=== PATIENT | male | born 1950 | race African-American/Black ===

== ENCOUNTER 2018-12-08 21:19 | Emergency (ER) | payer SELFPAY ==
[~2018-12-08] VITALS: Ht 167.6 cm; Wt 74.8 kg
[2018-12-08 21:22] VITALS: BP 153/74
--- NOTE | 2018-12-08 21:27 | NUR ---
PT RECEIVED TO ER LOBBY VIA W/C IN STABLE CONDITION.
--- NOTE | 2018-12-08 22:48 | NUR ---
PT TAKEN TO BED 1
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
--- NOTE | 2018-12-08 23:13 | NUR ---
Dr. Rogers evaluating patient at bedside.
[2018-12-08 23:27] VITALS: BP 153/74
--- NOTE | 2018-12-08 23:28 | NUR ---
PATIENT D/C. AMBULATED TO WHEELCHAIR WITH STEADY GAIT AND THEN ESCORTED OUT IN WHEELCHAIR BY EMT. REFUESED TO TAKE AFTER CARE INSTRUCTIONS.
== END 2018-12-08 23:28 | disposition home or self-care (01) ==
LOC: MED 21:19
DX: Z00.00 Encounter for general adult medical examination without abnormal findings (principal); W19.XXXA Unspecified fall, initial encounter; Y93.89 Activity, other specified; Y92.89 Other specified places as the place of occurrence of the external cause; Y99.8 Other external cause status
CPT/HCPCS: 99281; 99283

== ENCOUNTER 2019-04-25 05:00 | Emergency (ER) | payer BC ==
[~2019-04-25] VITALS: Ht 172.7 cm; Wt 77.1 kg
[2019-04-25 05:00] VITALS: BP 117/54
[2019-04-25 05:05] VITALS: BP 117/54
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
== END 2019-04-25 05:05 ==
LOC: MED 05:00
DX: S60.812A Abrasion of left wrist, initial encounter (principal); S60.811A Abrasion of right wrist, initial encounter; M54.6 Pain in thoracic spine; X58.XXXA Exposure to other specified factors, initial encounter; Y93.89 Activity, other specified; Y92.89 Other specified places as the place of occurrence of the external cause; Y99.8 Other external cause status
CPT/HCPCS: 99283

== ENCOUNTER 2019-07-06 16:55 | Emergency (ER) | payer BC ==
[~2019-07-06] VITALS: Ht 172.7 cm; Wt 68.0 kg
[2019-07-06 17:01] VITALS: BP 100/75
--- NOTE | 2019-07-06 17:09 | NUR ---
PT PLACED IN BED 7 BY EMS.
--- NOTE | 2019-07-06 17:13 | NUR ---
Patient being evaluated by Dr. Zhou at bedside.
--- NOTE | 2019-07-06 17:32 | NUR ---
pt biba c/o etoh intoxication. pt is uncooperative and verbally aggressive. denies any medical problem. dnies drinking, denies drug use.
[2019-07-06] MEDS ORDERED: HALOPERIDOL IM 5 MG/ML VIAL IM ONE (17:45)
--- NOTE | 2019-07-06 17:45 | NUR ---
pt threw urinal on the floor, urine spilt, EVS called.
--- NOTE | 2019-07-06 17:56 | NUR ---
PT YELLING, CURSING AT STAFF, YELLING AT PATIENT'S USING VULGAR LANGUAGE. PT UNCOOPERATIVE AND NOT FOLLOWING COMMANDS. PT CONTINUES TO YELL RACES NAMES OUT. PT HAS BEEN RE-ORIENTED AND ASKED TO STOP YELLING AND PT WILL SAY "FUCK YOU!" AND PUT UP HIS MIDDLE FINGER.
--- NOTE | 2019-07-06 18:10 | NUR ---
pt urinated on the floor, EVS called
[2019-07-06 18:23] LABS: APPEARANCE,URINE CLEAR (CLEAR); BILIRUBIN,URINE NEGATIVE (NEGATIVE); BLOOD, URINE NEGATIVE (NEGATIVE); COLOR,URINE YELLOW (YELLOW); LEUKOCYTE ESTERASE ,URINE NEGATIVE (NEGATIVE); NITRITE, URINE NEGATIVE (NEGATIVE); UGLUCOSE NEGATIVE (NEGATIVE)
--- NOTE | 2019-07-06 18:38 | NUR ---
Omar rodriguez in ED - 07/06/19 at 1838 by [email or web address] pt asleep in bed at this time
--- NOTE | 2019-07-06 18:38 | NUR ---
pt asleep in bed at this time, arousable to verbal stimuli
[2019-07-06 19:04] LABS: BARBITURATE, URINE NEG. ng/ml (NEG <=200); BENZODIAZEPINE, URINE NEG. ng/mL (NEG <=200); CANNABINOID, URINE NEG. ng/mL (NEG <=50); COCAINE, URINE NEG. ng/mL (NEG <=300); OPIATE, URINE NEG. ng/mL (NEG <=2000); PHENCYCLIDINE SCREEN,URINE NEG. ng/mL (NEG <=25)
--- NOTE | 2019-07-06 19:20 | NUR ---
Pt report given to costa whyte. Transfer of care at this time.
--- NOTE | 2019-07-06 19:20 | NUR ---
BEDSIDE REPORT RECEIVED FROM LIZA THOMPSON. ASSUMED CARE AT THIS TIME. PT ASLEEP. VISIBLE CHEST RISE AND FALL NOTED. BEDRIALS X2 UP FOR PT SAFETY. WILL CONTINUE TO MONITOR.
[2019-07-06 19:33] LABS: ANION GAP 15.3 (8-16); CARBON DIOXIDE 21.9 mmol/L (21-32); CHLORIDE 112 mmol/L (98-107); CREATININE 0.7 mg/dL (0.7-1.3); GLUCOSE 91 mg/dL (74-106); POTASSIUM 4.2 mmol/L (3.5-5.1); SODIUM SERUM 145 mmol/L (136-145); UREA NITROGEN, BLOOD 9 mg/dL (7-18)
[2019-07-06 19:34] LABS: BASOPHILS # (AUTO) 0.1 K/uL (0.00-0.22); BASOPHILS % (AUTO) 1.2 % (0.0-2.0); EOSINOPHILS % (AUTO) 0.7 % (0.0-4.0); LYMPHOCYTES # (AUTO) 3.3 K/uL (2.0-11.5); LYMPHOCYTES % (AUTO) 70.9 % (20.5-51.1); MEAN CORPUSCULAR HEMOGLOBIN 25 pg (27-31); MEAN CORPUSCULAR HGB CONC 32 g/dL (33-37); MEAN CORPUSCULAR VOLUME 76.7 fL (80-94); MONOCYTES # (AUTO) 0.2 K/uL (0.8-1.0); NEUTROPHILS # (AUTO) 1.1 K/uL (1.8-7.7); NEUTROPHILS % (AUTO) 23.2 % (42.2-75.2); PLATELET COUNT (AUTO) 105 K/uL (140-450); RED BLOOD CELL COUNT(AUTO) 3.65 MIL/uL (4.20-6.10); RED CELL DISTRIBUTION WIDTH 17.9 % (11.6-13.7); WHITE BLOOD COUNT (AUTO) 4.7 K/uL (4.8-10.8)
[2019-07-06 19:44] LABS: ALBUMIN 3.2 g/dL (3.4-5.0); ASPARTATE AMINOTRANSFERASE 133 U/L (15-37); TOTAL BILIRUBIN 0.8 mg/dL (0.0-1.0)
[2019-07-06 20:59] VITALS: BP 93/48
--- NOTE | 2019-07-06 20:59 | NUR ---
PT ASLEEP. AROUSABLE TO NAME AND LIGHT TOUCH. VSS. WILL CONTINUE TO MONITOR.
--- NOTE | 2019-07-06 21:10 | NUR ---
PT AWAKE. PT STATED "IM IN PAIN. MY HERNIA HURTS." ERMD MADE AWARE.
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
--- NOTE | 2019-07-06 22:17 | NUR ---
Patient discharged with v/s stable. Written and verbal after care instructions given and explained. Pt did not express verbal understanding. Pt refused to take discharge paperwork or sign. Wheel Chair Assisted out by security. Pt able to ambulate but refused to.
== END 2019-07-06 22:17 | disposition home or self-care (01) ==
LOC: MED 16:55
DX: F10.129 Alcohol abuse with intoxication, unspecified (principal)
CPT/HCPCS: 36415; 80053; 80305; 81003; 85025; 96372; 99283; G0482; J1630

== ENCOUNTER 2020-10-17 10:54 | Emergency (ER) | payer OTHER, BC ==
[~2020-10-17] VITALS: Ht 172.7 cm; Wt 68.2 kg
--- NOTE | 2020-10-17 10:55 | NUR ---
Patient BIBA BLS, transferred to bed 3. RN evaluating the patient at bedside.
--- NOTE | 2020-10-17 11:03 | NUR ---
ERMD AT BEDSIDE EVALUATING PT.
[2020-10-17 11:04] VITALS: BP 137/82
--- NOTE | 2020-10-17 11:18 | NUR ---
70 Y/M BIBA FROM [facility]. PT C/O CP X 1 DAY, NON RADIATING. PT A&O X 4. RR EVEN AND UNLABORED. PT ALSO REPORTS 6/10 PAIN FROM RIGHT GROIN C LOOSE STOOLS. PT REPORTS CHRONIC HERNIA AND PAIN HAS BEEN CONSTANT. DENIES DYSURIA. PT ALSO REPORTS CHRONIC COUGH D/T EMPHYSIMA NKDA PMH:EMPHYSIMA, HERNIA, HTN
--- NOTE | 2020-10-17 11:52 | NUR ---
LAB AT BEDSIDE.
[2020-10-17] MEDS ORDERED: ALUMINUM HYD/MAG/SIMETHICONE 30 ML UDC PO ONE (11:55)
[2020-10-17 12:01] LABS: BASOPHILS # (AUTO) 0.1 K/uL (0.00-0.22); BASOPHILS % (AUTO) 1.3 % (0.0-2.0); EOSINOPHILS % (AUTO) 0.3 % (0.0-4.0); HEMATOCRIT 26.1 % (36-52); HEMOGLOBIN 8.2 g/dL (12.0-18.0); LYMPHOCYTES # (AUTO) 1.6 K/uL (2.0-11.5); LYMPHOCYTES % (AUTO) 37.9 % (20.5-51.1); MEAN CORPUSCULAR HEMOGLOBIN 24 pg (27-31); MEAN CORPUSCULAR HGB CONC 32 g/dL (33-37); MEAN CORPUSCULAR VOLUME 77.1 fL (80-94); MONOCYTES # (AUTO) 0.3 K/uL (0.8-1.0); MONOCYTES % (AUTO) 7.1 % (1.7-9.3); NEUTROPHILS # (AUTO) 2.3 K/uL (1.8-7.7); NEUTROPHILS % (AUTO) 53.4 % (42.2-75.2); PLATELET COUNT (AUTO) 95 K/uL (140-450); RED BLOOD CELL COUNT(AUTO) 3.39 MIL/uL (4.20-6.10); RED CELL DISTRIBUTION WIDTH 18.8 % (11.6-13.7); WHITE BLOOD COUNT (AUTO) 4.2 K/uL (4.8-10.8)
[2020-10-17 12:14] LABS: ALBUMIN 3.5 g/dL (3.4-5.0); ANION GAP 14.7 (8-16); ASPARTATE AMINOTRANSFERASE 87 U/L (15-37); CARBON DIOXIDE 23.2 mmol/L (21-32); CHLORIDE 105 mmol/L (98-107); CREATININE 0.8 mg/dL (0.6-1.3); GLUCOSE 89 mg/dL (74-106); LIPASE 131 U/L (73-393); POTASSIUM 3.9 mmol/L (3.5-5.1); SODIUM SERUM 139 mmol/L (136-145); TOTAL BILIRUBIN 2.3 mg/dL (0.0-1.0); UREA NITROGEN, BLOOD 12 mg/dL (7-18)
--- NOTE | 2020-10-17 12:27 | NUR ---
PT AMBULATED TO BATHROOM, STEADY GAIT.
[2020-10-17 12:49] VITALS: BP 138/81
--- NOTE | 2020-10-17 12:50 | NUR ---
Patient discharged with v/s stable. Written and verbal after care instructions given and explained. Patient alert, oriented and verbalized understanding of instructions. Ambulatory with steady gait. All questions addressed prior to discharge. ID band removed. Patient advised to follow up with PMD. Rx of MOTRIN given. Patient educated on indication of medication including possible reaction and side effects. Opportunity to ask questions provided and answered. PT GIVEN BUS PASS.
== END 2020-10-17 12:50 | disposition home or self-care (01) ==
LOC: MED 10:54
DX: K40.90 Unilateral inguinal hernia, without obstruction or gangrene, not specified as recurrent (principal); K70.30 Alcoholic cirrhosis of liver without ascites; G89.29 Other chronic pain
CPT/HCPCS: 36415; 80053; 83690; 84484; 85025; 93005; 99284

== ENCOUNTER 2021-02-07 08:45 | Emergency (ER) | payer OTHER, BC ==
[~2021-02-07] VITALS: Ht 170.2 cm; Wt 68.0 kg
--- NOTE | 2021-02-07 08:45 | NUR ---
PT BIBA TO BED 06.
[2021-02-07 08:48] VITALS: BP 157/87
--- NOTE | 2021-02-07 09:06 | NUR ---
ERMD AT BEDSIDE.
[2021-02-07 09:19] LABS: BASOPHILS # (AUTO) 0.1 K/uL (0.00-0.22); BASOPHILS % (AUTO) 1.5 % (0.0-2.0); EOSINOPHILS % (AUTO) 0.3 % (0.0-4.0); HEMATOCRIT 29.1 % (36-52); HEMOGLOBIN 9.4 g/dL (12.0-18.0); LYMPHOCYTES # (AUTO) 1.6 K/uL (2.0-11.5); MEAN CORPUSCULAR HEMOGLOBIN 25 pg (27-31); MEAN CORPUSCULAR HGB CONC 32 g/dL (33-37); MEAN CORPUSCULAR VOLUME 77.8 fL (80-94); MONOCYTES # (AUTO) 0.7 K/uL (0.8-1.0); NEUTROPHILS % (AUTO) 67.2 % (42.2-75.2); PLATELET COUNT (AUTO) 143 K/uL (140-450); RED BLOOD CELL COUNT(AUTO) 3.73 MIL/uL (4.20-6.10); RED CELL DISTRIBUTION WIDTH 18.2 % (11.6-13.7); WHITE BLOOD COUNT (AUTO) 7.4 K/uL (4.8-10.8)
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
[2021-02-07 09:32] LABS: ANION GAP 17.1 (8-16); CARBON DIOXIDE 23.2 mmol/L (21-32); CHLORIDE 100 mmol/L (98-107); CREATININE 1.4 mg/dL (0.6-1.3); GLUCOSE 144 mg/dL (74-106); POTASSIUM 4.3 mmol/L (3.5-5.1); SODIUM SERUM 136 mmol/L (136-145); UREA NITROGEN, BLOOD 23 mg/dL (7-18)
[2021-02-07 09:39] LABS: ALBUMIN 3.7 g/dL (3.4-5.0); ASPARTATE AMINOTRANSFERASE 65 U/L (15-37); TOTAL BILIRUBIN 2.7 mg/dL (0.0-1.0)
[2021-02-07 09:40] LABS: ACETAMINOPHEN < 0.5 ug/ml (10-30); SALICYLATE < 2.8 mg/dL (2.8-20.0)
--- NOTE | 2021-02-07 09:42 | NUR ---
TERA AND NOVEL SWABS COLLECTED AND SENT TO LAB
--- NOTE | 2021-02-07 10:00 | NUR ---
PT REQUESTING FOR SOMETHING TO EAT, ROBERTO CARLOS MADE AWARE. ORDERS RECEIVED. PT OFFERED SANDWICH AT THIS TIME.
--- NOTE | 2021-02-07 11:20 | NUR ---
PT STATES HE UNABLE TO PROVIDE URINE AT THIS TIME.
[2021-02-07 13:53] LABS: APPEARANCE,URINE CLEAR (CLEAR); BILIRUBIN,URINE 2+ (NEGATIVE); BLOOD, URINE NEGATIVE (NEGATIVE); COLOR,URINE DARK YELLOW (YELLOW); LEUKOCYTE ESTERASE ,URINE NEGATIVE (NEGATIVE); NITRITE, URINE POSITIVE (NEGATIVE); UGLUCOSE NEGATIVE (NEGATIVE)
--- NOTE | 2021-02-07 13:57 | NUR ---
PT SPEAKING WITH TELEPSYCH CONSULT.
--- NOTE | 2021-02-07 14:20 | NUR ---
PT ON TELEPSYCH CONSULT WITH DR LAUREN
[2021-02-07 15:08] LABS: BARBITURATE, URINE NEGATIVE ng/ml (NEG <=200); BENZODIAZEPINE, URINE NEGATIVE ng/mL (NEG <=200); CANNABINOID, URINE POSITIVE ng/mL (NEG <=50); COCAINE, URINE NEGATIVE ng/mL (NEG <=300)
[2021-02-07 15:09] LABS: OPIATE, URINE NEGATIVE ng/mL (NEG <=2000); PHENCYCLIDINE SCREEN,URINE NEGATIVE ng/mL (NEG <=25)
--- NOTE | 2021-02-07 15:17 | NUR ---
pt c/o of cramping ermd made aware.
[2021-02-07] MEDS: CYCLOBENZAPRINE 10 MG TAB PO ONE (15:21)
[2021-02-07 15:23] VITALS: BP 136/56
--- NOTE | 2021-02-07 15:24 | NUR ---
Patient discharged with v/s stable. Written and verbal after care instructions given and explained. Patient verbalized understanding. Patient refused to sign discharge paperwork. Ambulatory with steady gait. All questions addressed prior to discharge. Advised to follow up with PMD.
== END 2021-02-07 15:20 | disposition home or self-care (01) ==
LOC: MED 08:45
DX: F15.10 Other stimulant abuse, uncomplicated (principal); Z20.822 Contact with and (suspected) exposure to COVID-19; R44.3 Hallucinations, unspecified; F60.0 Paranoid personality disorder; F17.200 Nicotine dependence, unspecified, uncomplicated; Z98.890 Other specified postprocedural states
CPT/HCPCS: 36415; 80053; 80305; 81003; 85025; 87426; 99283; G0480; G0482; U0003

== ENCOUNTER 2021-05-26 07:38 | Emergency (ER) | payer OTHER, BC ==
[~2021-05-26] VITALS: Ht 172.7 cm; Wt 74.8 kg
[2021-05-26 07:42] VITALS: BP 149/89
--- NOTE | 2021-05-26 07:50 | NUR ---
PT TO WAIT IN LOBBY
[2021-05-26 10:19] VITALS: BP 159/93
--- NOTE | 2021-05-26 12:56 | NUR ---
PT TAKEN TO CHAIR AND GIVEN FOOD. EVEN AND UNLABORED RESPIRATIONS OBSERVED.
--- NOTE | 2021-05-26 13:13 | NUR ---
PT ABLE TO WALK WITHOUT ASSISTANCE, DR FLORES MADE AWARE.
--- NOTE | 2021-05-26 13:37 | NUR ---
Patient discharged with v/s stable. Written and verbal after care instructions given and explained. Patient verbalized understanding. Ambulatory with steady gait. All questions addressed prior to discharge. Advised to follow up with PMD. SUPPLIED WITH FOOD AND HOMELESS RESOURCES AND SHELTERS. GIVEN BUS PASS UPON D/C
--- NOTE | 2021-05-26 13:37 | NUR ---
NO NURSING INTERVENTION PROVIDED
== END 2021-05-26 13:37 | disposition home or self-care (01) ==
LOC: MED 07:38
DX: F15.10 Other stimulant abuse, uncomplicated (principal); F17.200 Nicotine dependence, unspecified, uncomplicated; Z98.890 Other specified postprocedural states
CPT/HCPCS: 99283

== ENCOUNTER 2021-06-27 09:34 | Emergency (ER) | payer OTHER, BC ==
[~2021-06-27] VITALS: Ht 170.2 cm; Wt 64.4 kg
--- NOTE | 2021-06-27 09:39 | NUR ---
Patient to bed [facility].
[2021-06-27 09:41] VITALS: BP 138/80
--- NOTE | 2021-06-27 09:54 | NUR ---
DR PRINCE AT BEDSIDE EVALUATING PT
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
--- NOTE | 2021-06-27 10:19 | NUR ---
RADIOLOGY AT BEDSIDE TO DO XRAY
--- NOTE | 2021-06-27 10:24 | NUR ---
EMT AT BEDSIDE FOR EKG
--- NOTE | 2021-06-27 10:27 | NUR ---
per ermd 12 lead was done on pt andcame back nsr at 79 hr.
--- NOTE | 2021-06-27 10:40 | NUR ---
LAB AT BEDSIDE DRAWING BLOOD.
--- NOTE | 2021-06-27 10:46 | NUR ---
PT NOTIFIED THAT A URINE SAMPLE IS NEEDED. PT STATES HE WILL PROVIDE ONE ONCE HE IS ABLE TO
[2021-06-27 10:51] LABS: BASOPHILS # (AUTO) 0.1 K/uL (0.00-0.22); EOSINOPHILS # (AUTO) 0.1 K/uL (0-0.4); EOSINOPHILS % (AUTO) 2.7 % (0.0-4.0); HEMATOCRIT 27.5 % (36-52); HEMOGLOBIN 8.9 g/dL (12.0-18.0); LYMPHOCYTES # (AUTO) 1.5 K/uL (2.0-11.5); LYMPHOCYTES % (AUTO) 27.4 % (20.5-51.1); MEAN CORPUSCULAR HEMOGLOBIN 24 pg (27-31); MEAN CORPUSCULAR HGB CONC 32 g/dL (33-37); MEAN CORPUSCULAR VOLUME 75.7 fL (80-94); MONOCYTES # (AUTO) 0.6 K/uL (0.8-1.0); MONOCYTES % (AUTO) 11.3 % (1.7-9.3); NEUTROPHILS # (AUTO) 3.2 K/uL (1.8-7.7); NEUTROPHILS % (AUTO) 57.6 % (42.2-75.2); PLATELET COUNT (AUTO) 113 K/uL (140-450); RED BLOOD CELL COUNT(AUTO) 3.64 MIL/uL (4.20-6.10); RED CELL DISTRIBUTION WIDTH 20.1 % (11.6-13.7); WHITE BLOOD COUNT (AUTO) 5.5 K/uL (4.8-10.8)
[2021-06-27 11:19] LABS: ALBUMIN 3.2 g/dL (3.4-5.0); ANION GAP 12.2 (8-16); ASPARTATE AMINOTRANSFERASE 62 U/L (15-37); CHLORIDE 102 mmol/L (98-107); CREATININE 0.8 mg/dL (0.6-1.3); GLUCOSE 129 mg/dL (74-106); LIPASE 92 U/L (73-393); POTASSIUM 4.2 mmol/L (3.5-5.1); SODIUM SERUM 135 mmol/L (136-145); TOTAL BILIRUBIN 1.9 mg/dL (0.0-1.0); UREA NITROGEN, BLOOD 12 mg/dL (7-18)
[2021-06-27 11:45] LABS: SALICYLATE < 2.8 mg/dL (2.8-20.0)
--- NOTE | 2021-06-27 11:58 | NUR ---
URINE COLECTED AND TAKEN TO LAB FOR PROCESSING
[2021-06-27 12:35] LABS: BARBITURATE, URINE NEGATIVE ng/ml (NEG <=200); BENZODIAZEPINE, URINE NEGATIVE ng/mL (NEG <=200); CANNABINOID, URINE NEGATIVE ng/mL (NEG <=50); COCAINE, URINE NEGATIVE ng/mL (NEG <=300); OPIATE, URINE POSITIVE ng/mL (NEG <=2000); PHENCYCLIDINE SCREEN,URINE NEGATIVE ng/mL (NEG <=25)
--- NOTE | 2021-06-27 12:45 | NUR ---
RAD AT BEDSIDE
[2021-06-27 13:50] VITALS: BP 124/75
--- NOTE | 2021-06-27 13:50 | NUR ---
Patient discharged with v/s stable. Written and verbal after care instructions given and explained. Patient verbalized understanding. Ambulatory with steady gait. All questions addressed prior to discharge. Advised to follow up with PMD.
--- NOTE | 2021-06-27 13:51 | NUR ---
Patient given written and verbal discharge instructions and verbalizes understanding. Given copies of tests performed during visit. Patient is awake, alert and oriented. Ambulatory with steady gait. Refuses offer of [facility]. Given list of available shelters in surrounding areas. PT GIVEN HOMELESS BACK AND BAG OF FOOD. PT SIGNED HOMELESS WAIVER.
== END 2021-06-27 13:51 | disposition home or self-care (01) ==
LOC: MED 09:34
DX: R11.2 Nausea with vomiting, unspecified (principal); M25.512 Pain in left shoulder; M25.561 Pain in right knee; F17.200 Nicotine dependence, unspecified, uncomplicated; Z98.890 Other specified postprocedural states
CPT/HCPCS: 36415; 71045; 73030; 73562; 80053; 80305; 83690; 84484; 85025; 93005; 99285; G0480; G0482; Q0092

== ENCOUNTER 2021-09-16 21:10 | Emergency (ER) | payer OTHER, BC, SELFPAY ==
[~2021-09-16] VITALS: Ht 170.2 cm; Wt 68.0 kg
[2021-09-16] MEDS: KETOROLAC 60 MG/2 ML VIAL IM ONE (01:41)
[2021-09-16] MEDS: cefTRIAXone 1,000 MG in LIDOCAINE MPF 1% 2.1 ML IM ONE (01:42)
[2021-09-16 21:33] VITALS: BP 143/78
--- NOTE | 2021-09-16 21:43 | NUR ---
PT OFFLOADED TPO LOBBY IN STABLE CONDITION.
[2021-09-17] MEDS ORDERED: KETOROLAC 60 MG/2 ML VIAL IM ONE (01:36)
[2021-09-17] MEDS ORDERED: BACITRACIN OINT 500 UNITS/GM PKT TP ONE (01:36)
[2021-09-17] MEDS ORDERED: LIDOCAINE MPF 1% 5 ML ONE (01:36)
[2021-09-17] MEDS ORDERED: cefTRIAXone 1,000 MG VIAL ONE (01:36)
[2021-09-17] MEDS: BACITRACIN OINT 500 UNITS/GM PKT TP ONE (01:40)
[2021-09-17] MEDS ORDERED: IBUP-2213 PO (01:53)
[2021-09-17] MEDS ORDERED: ACET-8386 PO (01:53)
[2021-09-17 02:08] VITALS: BP 138/79
--- NOTE | 2021-09-17 02:08 | NUR ---
Patient discharged with v/s stable. Written and verbal after care instructions given and explained. Patient alert, oriented and verbalized understanding of instructions. Ambulatory with steady gait. All questions addressed prior to discharge. ID band removed. Patient advised to follow up with PMD. Rx of NORCO AND MOTRIN given. Patient educated on indication of medication including possible reaction and side effects. Opportunity to ask questions provided and answered.
== END 2021-09-17 02:08 | disposition home or self-care (01) ==
LOC: MED 21:10
DX: L03.115 Cellulitis of right lower limb (principal); L03.116 Cellulitis of left lower limb; I11.0 Hypertensive heart disease with heart failure; I50.9 Heart failure, unspecified; F17.200 Nicotine dependence, unspecified, uncomplicated; F11.90 Opioid use, unspecified, uncomplicated; F15.90 Other stimulant use, unspecified, uncomplicated; Z98.890 Other specified postprocedural states
CPT/HCPCS: 96372; 99284; J0696; J1885; J2001

== ENCOUNTER 2021-12-04 17:13 | Emergency (ER) | payer OTHER, BC ==
[~2021-12-04] VITALS: Ht 172.7 cm; Wt 68.0 kg
[2021-12-04 17:13] VITALS: BP 145/88
[~2021-12-04 17:13] MED LIST: ACET-8386 PO; IBUP-2213 PO
--- NOTE | 2021-12-04 17:15 | NUR ---
PT TO BE TAKEN TO LOBBY VIA W/C PER DR. GARCIA.
--- NOTE | 2021-12-04 17:20 | NUR ---
71 y/o M BIBA c/o for fatigue x 3 days, chronic R hip pain, chronic low back pain. Patient A&Ox4, wheelchair assisted, states increased pain after waking up in morning worsening with ambulating. Patient states taking a few sips of beer today; denies trauma/fall/injury, chest pain, dizziness, headache. States SOB. Lung sounds CTA. Pt placed into a gown. Skin pink/warm/dry. Cap refill <2 seconds. Bed locked in lowest position, side rails x 1. PMH/Sx/Meds: alcoholism NKDA
--- NOTE | 2021-12-04 17:25 | NUR ---
PT TAKEN TO ER BED 6 VIA W/C.
--- NOTE | 2021-12-04 17:46 | NUR ---
DR. GARCIA AT PT BEDSIDE FOR FURTHER EVALUATION.
[2021-12-04] MEDS ORDERED: CYCLOBENZAPRINE 10 MG TAB PO ONE (18:00)
[2021-12-04] MEDS ORDERED: KETOROLAC 15 MG/ML VIAL IVP ONE (18:00)
--- NOTE | 2021-12-04 18:04 | NUR ---
REPAIRER AND CHECKER AT PT BEDSIDE.
[2021-12-04 18:17] LABS: APPEARANCE,URINE CLEAR (CLEAR); BILIRUBIN,URINE NEGATIVE (NEGATIVE); BLOOD, URINE NEGATIVE (NEGATIVE); LEUKOCYTE ESTERASE ,URINE NEGATIVE (NEGATIVE); NITRITE, URINE NEGATIVE (NEGATIVE); UGLUCOSE NEGATIVE (NEGATIVE)
--- NOTE | 2021-12-04 18:24 | NUR ---
Covid marcello and influenza swab collected, handed to CPT Meagan at ER bedside
[2021-12-04 18:33] LABS: BASOPHILS # (AUTO) 0.1 K/uL (0.00-0.22); BASOPHILS % (AUTO) 1.3 % (0.0-2.0); EOSINOPHILS # (AUTO) 0.1 K/uL (0-0.4); EOSINOPHILS % (AUTO) 1.8 % (0.0-4.0); HEMATOCRIT 32.8 % (36-52); HEMOGLOBIN 10.4 g/dL (12.0-18.0); LYMPHOCYTES # (AUTO) 0.9 K/uL (2.0-11.5); LYMPHOCYTES % (AUTO) 19.1 % (20.5-51.1); MEAN CORPUSCULAR HEMOGLOBIN 24 pg (27-31); MEAN CORPUSCULAR HGB CONC 32 g/dL (33-37); MEAN CORPUSCULAR VOLUME 74.1 fL (80-94); MONOCYTES # (AUTO) 0.2 K/uL (0.8-1.0); NEUTROPHILS # (AUTO) 3.4 K/uL (1.8-7.7); NEUTROPHILS % (AUTO) 73.8 % (42.2-75.2); PLATELET COUNT (AUTO) 128 K/uL (140-450); RED BLOOD CELL COUNT(AUTO) 4.43 MIL/uL (4.20-6.10); RED CELL DISTRIBUTION WIDTH 19.9 % (11.6-13.7); WHITE BLOOD COUNT (AUTO) 4.6 K/uL (4.8-10.8)
[2021-12-04 18:56] LABS: BARBITURATE, URINE NEGATIVE ng/ml (NEG <=200); BENZODIAZEPINE, URINE NEGATIVE ng/mL (NEG <=200); COCAINE, URINE NEGATIVE ng/mL (NEG <=300)
[2021-12-04 18:57] LABS: CANNABINOID, URINE POSITIVE ng/mL (NEG <=50); OPIATE, URINE NEGATIVE ng/mL (NEG <=2000); PHENCYCLIDINE SCREEN,URINE NEGATIVE ng/mL (NEG <=25)
--- NOTE | 2021-12-04 19:01 | NUR ---
Patient resting in semi-fowlers position with both eyes closed. quality assurance monitor chassis in place. VSS. Respirations even/unlabored. Bed locked in lowest position, side rails x 1.
--- NOTE | 2021-12-04 19:03 | NUR ---
Pt states + relief to pain; 7/10 at this time. All pt needs met.
[2021-12-04 19:08] LABS: SALICYLATE < 2.8 mg/dL (2.8-20.0)
[2021-12-04 19:09] LABS: ALBUMIN 3.5 g/dL (3.4-5.0); AMYLASE 62 U/L (25-115); ANION GAP 15.2 (8-16); ASPARTATE AMINOTRANSFERASE 72 U/L (15-37); CARBON DIOXIDE 23.3 mmol/L (21-32); CHLORIDE 104 mmol/L (98-107); CREATININE 0.8 mg/dL (0.6-1.3); GLUCOSE 91 mg/dL (74-106); LIPASE 125 U/L (73-393); POTASSIUM 4.5 mmol/L (3.5-5.1); SODIUM SERUM 138 mmol/L (136-145); UREA NITROGEN, BLOOD 31 mg/dL (7-18)
[2021-12-04 19:09] LABS: ACETAMINOPHEN < 0.5 ug/ml (10-30)
[2021-12-04 19:10] LABS: COLOR,URINE AMBER (YELLOW)
--- NOTE | 2021-12-04 19:12 | NUR ---
Report and transfer of care endorsed to THOMAS Hidalgo.
[2021-12-04 19:23] LABS: TOTAL BILIRUBIN 1.4 mg/dL (0.0-1.0)
--- NOTE | 2021-12-04 19:38 | NUR ---
pt provided emisis bag for coughing up mucus. pt hob elevated. pt resting in bed
[2021-12-04] MEDS ORDERED: IBUP-2213 PO (19:44)
[2021-12-04] MEDS ORDERED: METH-1681 PO (19:44)
--- NOTE | 2021-12-04 20:06 | NUR ---
DR GARCIA AT BEDSIDE EXPLAINING D/C ORDERS. PROVIDED HOMELESS RESOURCES TO PT. PT UNWILLING TO LEAVE DESPITE ALL LABS / IMAGING COING BACK WNL. PT NOT SIGNING DC PAPERWORK. REMOVED ALL IVS, ID BAND AND STICKERS,
--- NOTE | 2021-12-04 20:12 | NUR ---
SECURITY AT BEDSIDE. PT ESCORTED OUT AT THIS TIME.
[2021-12-04 20:14] VITALS: BP 144/78
--- NOTE | 2021-12-04 20:14 | NUR ---
Patient discharged with v/s stable. Written and verbal after care instructions given and explained. Patient verbalized understanding. Ambulatory with steady gait. All questions addressed prior to discharge. Advised to follow up with PMD. PT STATED HE WAS TIRED AND DID NOT WANT TO LEAVE. DID NOT SIGN DC PAPERWORK. PT WAS PROVIDED HOMELESS RESOURCES AND MEAL. SECURITY ASSISTED DC.
== END 2021-12-04 20:14 | disposition home or self-care (01) ==
LOC: MED 17:13
DX: R53.1 Weakness (principal); Z20.822 Contact with and (suspected) exposure to COVID-19; D50.9 Iron deficiency anemia, unspecified; F15.10 Other stimulant abuse, uncomplicated; F12.10 Cannabis abuse, uncomplicated; M62.838 Other muscle spasm; I11.0 Hypertensive heart disease with heart failure; I50.9 Heart failure, unspecified; F17.210 Nicotine dependence, cigarettes, uncomplicated; Z59.00 Homelessness unspecified; Z79.899 Other long term (current) drug therapy
CPT/HCPCS: 36415; 71045; 80053; 80305; 81003; 82150; 82550; 83690; 84484; 85025; 87086; 87426; 87804; 93005; 96374; 99285; G0480; G0482; J1885

== ENCOUNTER 2021-12-05 04:45 | Emergency (ER) | payer OTHER, BC ==
[~2021-12-05] VITALS: Ht 172.7 cm; Wt 68.0 kg
[~2021-12-05 04:45] MED LIST changes: +METH-1681 PO
[2021-12-05 05:04] VITALS: BP 135/74
--- NOTE | 2021-12-05 05:11 | NUR ---
PT IN [facility]
--- NOTE | 2021-12-05 05:13 | NUR ---
Dr. Pearce examining patient.
--- NOTE | 2021-12-05 05:28 | NUR ---
PT TAKEN TO RAD.
[2021-12-05 05:58] VITALS: BP 135/74
--- NOTE | 2021-12-05 05:58 | NUR ---
Patient discharged with v/s stable. Written and verbal after care instructions given and explained. Patient verbalized understanding. Wheel Chair Assisted with to car. All questions addressed prior to discharge. Advised to follow up with PMD.
== END 2021-12-05 05:58 | disposition home or self-care (01) ==
LOC: MED 04:45
DX: M25.551 Pain in right hip (principal); M25.552 Pain in left hip; I11.0 Hypertensive heart disease with heart failure; I50.9 Heart failure, unspecified; Z79.899 Other long term (current) drug therapy
CPT/HCPCS: 72170; 99283

== ENCOUNTER 2022-03-08 15:05 | Emergency (ER) | payer OTHER, BC ==
[~2022-03-08] VITALS: Ht 172.7 cm; Wt 63.5 kg
[2022-03-08 15:13] VITALS: BP 135/64
--- NOTE | 2022-03-08 15:13 | NUR ---
pt ambulated to bed 10 from [facility]
--- NOTE | 2022-03-08 15:15 | NUR ---
pt refusing to answer questions at this time, when asked reason for visit or pain scale, pt refusing to talk to [facility] [place] [facility]. keyla made aware.
--- NOTE | 2022-03-08 15:20 | NUR ---
pt refusing to answer md questions at this time.
[2022-03-08] MEDS ORDERED: CEPH-588 PO (16:02)
[2022-03-08] MEDS ORDERED: IBUP-2213 PO (16:02)
[2022-03-08 16:32] VITALS: BP 135/64
== END 2022-03-08 16:32 | disposition home or self-care (01) ==
LOC: MED 15:05
DX: L03.116 Cellulitis of left lower limb (principal); L03.115 Cellulitis of right lower limb; I11.0 Hypertensive heart disease with heart failure; I50.9 Heart failure, unspecified; F17.200 Nicotine dependence, unspecified, uncomplicated; Z87.448 Personal history of other diseases of urinary system; Z79.1 Long term (current) use of non-steroidal anti-inflammatories (NSAID); Z79.899 Other long term (current) drug therapy; Z79.891 Long term (current) use of opiate analgesic
CPT/HCPCS: 99283

== ENCOUNTER 2022-03-08 21:39 | Emergency (ER) | payer OTHER, BC ==
[~2022-03-08] VITALS: Ht 172.7 cm; Wt 68.0 kg
[~2022-03-08 21:39] MED LIST changes: +CEPH-588 PO
[2022-03-08 21:42] VITALS: BP 120/56
--- NOTE | 2022-03-08 21:42 | NUR ---
ER AT BEDSIDE
--- NOTE | 2022-03-08 21:43 | NUR ---
PT RADHA BLS. TAKEN TO BED 3
--- NOTE | 2022-03-08 21:44 | NUR ---
71 Y/O MALE BIBA FROM [facility]IDE [facility], C/O LEG PAIN 04/22. PER EMS PT WAS RECENTLY DISCHARGED FROM [facility] (DC INSTRUCTIONS IN HAND) AND WAS DX W/ CELLULITIS AND RX OF IBUPROFEN AND KEFLEX. A/OX4, GCS-15 BUT UNCOOPERATIVE; UNLABORED BREATHING AND SPEAKING IN FULL SENTENCES; AMBULATORY W/O ASSISTANCE BUT STATES HE HAS PAIN.
--- NOTE | 2022-03-08 22:39 | NUR ---
MECHANICAL EQUIPMENT TEST ENGINEER AT BEDSIDE
[2022-03-08 22:58] LABS: BASOPHILS % (AUTO) 0.7 % (0.0-2.0); EOSINOPHILS # (AUTO) 0.2 K/uL (0-0.4); EOSINOPHILS % (AUTO) 3.2 % (0.0-4.0); HEMATOCRIT 24.1 % (36-52); HEMOGLOBIN 7.7 g/dL (12.0-18.0); LYMPHOCYTES # (AUTO) 2.4 K/uL (2.0-11.5); MEAN CORPUSCULAR HEMOGLOBIN 23 pg (27-31); MEAN CORPUSCULAR HGB CONC 32 g/dL (33-37); MONOCYTES # (AUTO) 0.7 K/uL (0.8-1.0); MONOCYTES % (AUTO) 10.9 % (1.7-9.3); NEUTROPHILS # (AUTO) 3.4 K/uL (1.8-7.7); NEUTROPHILS % (AUTO) 50.2 % (42.2-75.2); PLATELET COUNT (AUTO) 110 K/uL (140-450); RED BLOOD CELL COUNT(AUTO) 3.35 MIL/uL (4.20-6.10); RED CELL DISTRIBUTION WIDTH 17.6 % (11.6-13.7); WHITE BLOOD COUNT (AUTO) 6.7 K/uL (4.8-10.8)
[2022-03-08 23:08] LABS: ANION GAP 11.1 (8-16); CARBON DIOXIDE 21.6 mmol/L (21-32); CHLORIDE 107 mmol/L (98-107); CREATININE 1.5 mg/dL (0.6-1.3); GLUCOSE 107 mg/dL (74-106); POTASSIUM 3.7 mmol/L (3.5-5.1); SODIUM SERUM 136 mmol/L (136-145); UREA NITROGEN, BLOOD 38 mg/dL (7-18)
[2022-03-09 03:23] VITALS: BP 134/68
--- NOTE | 2022-03-09 03:24 | NUR ---
Patient discharged with v/s stable. Written and verbal after care instructions and homeless packet given and explained. Patient verbalized understanding. Wheel Chair Assisted with to lobby. All questions addressed prior to discharge. Advised to follow up with PMD. Food given to pt. pt witnessed walking earlier and now states requires wheelchair. Pt refused to sign discharge paperwork.
== END 2022-03-09 03:24 | disposition home or self-care (01) ==
LOC: MED 21:39
DX: L03.116 Cellulitis of left lower limb (principal); L03.115 Cellulitis of right lower limb; R52 Pain, unspecified; I11.0 Hypertensive heart disease with heart failure; I50.9 Heart failure, unspecified; F17.200 Nicotine dependence, unspecified, uncomplicated; Z98.890 Other specified postprocedural states
CPT/HCPCS: 36415; 80048; 83605; 85025; 99283

== ENCOUNTER 2022-09-15 04:18 | Emergency (ER) | payer OTHER, BC ==
[~2022-09-15] VITALS: Ht 172.7 cm; Wt 68.0 kg
[2022-09-15 04:18] VITALS: BP 182/92
[~2022-09-15 04:18] MED LIST changes: -ACET-8386 PO; +ACET-8905 PO
--- NOTE | 2022-09-15 08:07 | NUR ---
DR REIS ATTEMPTED TO FIND PT IN THE LOBBY, FOUND WC EMPTY
--- NOTE | 2022-09-15 08:10 | NUR ---
pt ambulated to bathroom at this time
--- NOTE | 2022-09-15 08:32 | NUR ---
pt ambulated to bathroom at this time
--- NOTE | 2022-09-15 08:51 | NUR ---
pt ambulated to bathroom at this time
--- NOTE | 2022-09-15 09:00 | NUR ---
pt walked outside lobby at this time
--- NOTE | 2022-09-15 09:28 | NUR ---
pt ambulated to [facility]
--- NOTE | 2022-09-15 09:28 | NUR ---
DR REIS AT PT SIDE FOR EVAL
--- NOTE | 2022-09-15 09:28 | NUR ---
PT AMBULATED TO CHAIR A
--- NOTE | 2022-09-15 09:30 | NUR ---
72 Y/O MALE [place] [facility]RE[facility], PER PT HE DENIES FALLING, STATES THAT HE'S HUNGRY AND WANTS FOOD, ASKING FOR PAPER TO ROLL HIS MARIJUANA. NOTED RASH ON HIS FEET. NO SWELLING NOTED, STATES THAT IT HURTS AND THAT ITS ITCHY. JOHANN PMH: CHF
[2022-09-15] MEDS ORDERED: ACET-10509 PO (09:38)
[2022-09-15] MEDS ORDERED: DIPH25SG5 PO (09:38)
--- NOTE | 2022-09-15 09:46 | NUR ---
Patient discharged with v/s stable. Written and verbal after care instructions ABOUT RASH given and explained. Patient alert, oriented and verbalized understanding of instructions. Ambulatory with steady gait. All questions addressed prior to discharge. ID band removed. Patient advised to follow up with PMD. Rx of TYLENOL AND BENADRYL given. Patient educated on indication of medication including possible reaction and side effects. Opportunity to ask questions provided and answered.
== END 2022-09-15 09:46 | disposition home or self-care (01) ==
LOC: MED 04:18
DX: L29.9 Pruritus, unspecified (principal); I50.9 Heart failure, unspecified; I10 Essential (primary) hypertension; N18.9 Chronic kidney disease, unspecified; Z79.899 Other long term (current) drug therapy
CPT/HCPCS: 99283

== ENCOUNTER 2022-11-26 21:24 | Emergency (ER) | payer OTHER, MEDICAID ==
[~2022-11-26] VITALS: Ht 170.2 cm; Wt 68.0 kg
[~2022-11-26 21:24] MED LIST changes: +ACET-10509 PO; +DIPH25SG5 PO
--- NOTE | 2022-11-26 21:27 | NUR ---
PATIENT WENT TO ROOM 7
[2022-11-26 21:29] VITALS: BP 174/86
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
--- NOTE | 2022-11-27 02:30 | NUR ---
PT RESTING IN BED ON BEDSIDE SURGERY ATTENDANT. RESP EVEN AND UNLABORED. HOB ELEVATED.
--- NOTE | 2022-11-27 05:26 | NUR ---
PT SLEEPING WITH HOB ELEVATED. ON BEDSIDE CARIDAC MONITOR. RESP EVEN AND UNLABORED. DR DIXON AT BEDSIDE PENDING DISPO
[2022-11-27] MEDS ORDERED: NALO4SPR NS (05:54)
[2022-11-27 06:20] VITALS: BP 134/66
== END 2022-11-27 06:20 | disposition home or self-care (01) ==
LOC: MED 21:24
DX: R06.02 Shortness of breath (principal); T40.2X1A Poisoning by other opioids, accidental (unintentional), initial encounter; I10 Essential (primary) hypertension; I50.9 Heart failure, unspecified; N18.9 Chronic kidney disease, unspecified; Z79.899 Other long term (current) drug therapy; Y92.89 Other specified places as the place of occurrence of the external cause
CPT/HCPCS: 71045; 99283; Q0092